=== PATIENT | male | born 2000 ===

== ENCOUNTER 2022-03-24 05:14 | Emergency (ER) | payer SELFPAY ==
[2022-03-24] MEDS ORDERED: Ondansetron PF 4 MG/2 ML Vial ONE (05:25)
== END 2022-03-24 07:18 | disposition home or self-care (01) ==
LOC: ERS 05:14
DX: F10.129 Alcohol abuse with intoxication, unspecified (principal)
CPT/HCPCS: 96361; 96374; J2405